=== PATIENT | female | born 1950 | race Two or more races ===

== ENCOUNTER 2024-09-18 20:46 | Inpatient (IN) | payer BC, OTHER ==
[~2024-09-18] VITALS: Ht 152.4 cm; Wt 59.3 kg
--- NOTE | 2024-09-18 21:02 | ED.PDOC ---
History of Present Illness HPI Comments 74-year-old female who came to ER via EMS for syncope. Per EMS, patient is at home earlier today, complaining of epigastric abdominal pain radiating to her back associated bouts of nausea and vomiting. Patient went to the bathroom where she had a syncopal attack. No head trauma noted. Patient brought to the ER for further evaluation and management. States she feels better now. Chief Complaint: Syncope Time Seen by MD: 21:01 Reviewed Notes: Nurses Notes Information Source: Patient, Emergency Med Personnel Mode of Arrival: EMS Severity: Moderate Timing: Minutes Duration: Minutes Prehospital treatment: 12 Lead EKG, Accucheck Past Medical History PAST MEDICAL HISTORY: HTN Surgical History: Denies all surgeries ONLINE MARKETING COORDINATOR History: Denies all ONLINE MARKETING COORDINATOR Hx Family History Family History: Reviewed,noncontributory to illness Social History Smoker: Non-Smoker Alcohol: Denies ETOH Use Drugs: Denies Drug Use Lives In: Home Constitutional: denies: chills, diaphoresis, fatigue, fever, malaise, sweats, weakness, others EENTM: denies: blurred vision, double vision, ear bleeding, ear discharge, ear drainage, ear pain, ear ringing, eye pain, eye redness, hearing loss, mouth pain, mouth swelling, nasal discharge, nose bleeding, nose congestion, nose pain, photophobia, tearing, throat pain, throat swelling, voice changes, others Respiratory: denies: cough, hemoptysis, orthopnea, SOB at rest, shortness of breath, SOB with excertion, stridor, wheezing, others Cardiovascular: denies: chest pain, dizzy spells, diaphoresis, Dyspnea on exertion, edema, irregular heart beat, left arm pain, lightheadedness, palpitations, PND, syncope, others Gastrointestinal: reports: abdominal pain, nausea, vomiting; denies: abdomen distended, blood streaked bowels, constipated, diarrhea, dysphagia, difficulty swallowing, hematemesis, melena, poor appetite, poor fluid intake, rectal bleeding, rectal pain, others Genitourinary: denies: abnormal vagina bleeding, burning, dyspareunia, dysuria, flank pain, frequency, hematuria, incontinence, pain, , vagina discharge, urgency, others Neurological: reports: dizziness, fainting; denies: headache, left sided numbness, left sided weakness, numbness, paresthesia, pre-existing deficit, right sided numbness, right sided weakness, seizure, speech problems, tingling, tremors, weakness, others Musculoskeletal: denies: back pain, gout, joint pain, joint swelling, muscle pain, muscle stiffness, neck pain, others Integumetry: denies: bruises, change in color, change in hair/nails, dryness, laceration, lesions, lumps, rash, wounds, others Allergic/Immunocompromised: denies: Difficulty Healing, Frequent Infections, Hives, Itching, others Hematologic/Lymphatic: denies: anemia, blood clots, easy bleeding, easy bruising, swollen glands, others Endocrine: denies: excessive hunger, excessive sweating, excessive thirst, excessive urination, flushing, intolerance to cold, intolerance to heat, unexplained weight gain, unexplained weight loss, others Psychiatric: denies: anxiety, bipolar disorder, depression, hopeless, panic disorder, schizophrenia, sleepless, suicidal, others Physical Exam General Appearance: No Apparent Distress, Normal HEENT: Normal ENT Inspection, Pharynx Normal, TMs Normal Neck: Full Range of Motion, Non-Tender, Normal, Normal Inspection Respiratory: Chest Non-Tender, Lungs Clear, No Accessory Muscle Use, No Respiratory Distress, Normal Breath Sounds Cardiovascular: No Edema, No JVD, No Murmur, No Gallop, Normal Peripheral Pulses, Regular Rate/Rhythm Breast Exam: Deferred Gastrointestinal: No Organomegaly, Non Tender, No Pulsatile Mass, Normal Bowel Sounds, Soft Genitalia: Deferred Pelvic: Deferred Rectal: Deferred Extremities: No calf tenderness, Normal capillary refill, Normal inspection, Normal range of motion, Non-tender, No pedal edema Musculoskeletal : Apperance: Normal Neurologic: Alert, tuckpointer II-XII nml as Tested, No Motor Deficits, Normal Affect, Normal Mood, No Sensory Deficits Cerebellar Function: Normal Reflexes: Normal Skin: Dry, Normal Color, Warm Lymphatic: No Adenopathy Was a procedure done? Was a procedure done?: No Differential Dx Considerations may include: Anemia, electrolyte imbalance, syncope, hypotension X-Ray, Labs, Meds, VS Vital Signs Date Time Temp Pulse Resp B/P (MAP) Pulse Ox O2 Delivery O2 Flow Rate FiO2 09/18/24 21:07 72 Lab Test 09/18/24 21:20 Range/Units White Blood Count 19.4 H 4.4-10.8 10^3/uL Red Blood Count 4.34 4.0-5.20 10^6/uL Hemoglobin 13.9 12.2-16.2 g/dL Hematocrit 41.4 36.0-46.0 % Mean Corpuscular Volume 95.6 80.0-100.0 fL Mean Corpuscular Hemoglobin 32.0 28.0-32.0 pg Mean Corpuscular Hemoglobin Concent 33.4 32.0-36.0 g/dL Red Cell Distribution Width 14.2 11.8-14.3 % Platelet Count 249 140-450 10^3/uL Mean Platelet Volume 7.7 6.9-10.8 fL Neutrophils (%) (Auto) 85.9 H 37.0-80.0 % Lymphocytes (%) (Auto) 6.7 L 10.0-50.0 % Monocytes (%) (Auto) 6.1 0.0-12.0 % Eosinophils (%) (Auto) 1.1 0.0-7.0 % Basophils (%) (Auto) 0.2 0.0-2.0 % Neutrophils # (Auto) 16.6 H 1.6-8.6 10 ^3/uL Lymphocytes # (Auto) 1.3 0.4-5.4 10 ^3/uL Monocytes # (Auto) 1.2 0-1.3 10 ^3/uL Eosinophils # (Auto) 0.2 0-0.8 10 ^3/uL Basophils # (Auto) 0 0-0.2 10 ^3/uL Nucleated Red Blood Cells 0.0 % Sodium Level 135 L 136-145 mmol/L Potassium Level 3.7 3.5-5.1 mmol/L Chloride Level 99 98-107 mmol/L Carbon Dioxide Level 26 20-31 mmol/L Anion Gap 10 5-15 Blood Urea Nitrogen 31 H 9-23 mg/dL Creatinine 1.25 H 0.550-1.02 mg/dL Glomerular Filtration Rate Calc 45 >90 mL/min BUN/Creatinine Ratio 24.8 H 10.0-20.0 Serum Glucose 140 H 74-106 mg/dL Lactic Acid Level 1.1 0.4-2.0 mmol/L Calcium Level 9.9 8.7-10.4 mg/dL Magnesium Level 2.1 1.6-2.6 mg/dL Total Bilirubin 0.5 0.2-1.0 mg/dL Aspartate Amino Transferase (AST) 20 13-40 U/L Alanine Aminotransferase (ALT) 25 7-40 U/L Alkaline Phosphatase 129 H 46-116 U/L Troponin I High Sensitivity 3 L </=34 ng/L Total Protein 7.4 5.7-8.2 g/dL Albumin 4.7 3.2-4.8 g/dL Time of 1ST Reevaluation: 20:58 Reevaluation 1ST: Unchanged Patient Education/Counseling: Diagnosis, Treatment Family Education/Counseling: No Family Present Sepsis Sepsis Reasesment Focused Exam Sepsis focused exam: focus exam completed Departure 1 Departure Time of Disposition: 22:50 Impression: Primary Impression: Syncope and collapse Additional Impressions: Lymphocytosis Dehydration Disposition: ADMITTED INPATIENT Admit to: Tele Condition: Guarded Critical Care Note Critical Care Time?: No Stability Stability form required: No Heart Score Heart Score: Heart Score Response (Comments) Value History N/A 0 EKG N/A 0 Age N/A 0 Risk Factors N/A 0 Troponin N/A 0 Total 0 I personally scribed for MACARENA ETIENNE MD ([email or web address]) on 09/18/24 at 21:02. Electronically submitted by Aubrey Brownlee ([email or web address]). MACARENA ETIENNE MD Sep 18, 2024 21:02
[2024-09-18 21:58] LABS: Alanine Aminotransferase 25 U/L (7-40); Albumin 4.7 g/dL (3.2-4.8); Anion Gap 10 (5-15); Aspartate Aminotransferase 20 U/L (13-40); BUN/Creatinine Ratio 24.8 (10.0-20.0); Calcium 9.9 mg/dL (8.7-10.4); Carbon Dioxide 26 mmol/L (20-31); Chloride 99 mmol/L (98-107); Magnesium 2.1 mg/dL (1.6-2.6); Potassium 3.7 mmol/L (3.5-5.1)
[2024-09-18 21:59] LABS: Bilirubin, Total 0.5 mg/dL (0.2-1.0); Total Protein 7.4 g/dL (5.7-8.2)
[2024-09-18 22:09] LABS: Alkaline Phosphatase 129 U/L (46-116); Blood Urea Nitrogen 31 mg/dL (9-23); Glucose 140 mg/dL (74-106); Sodium 135 mmol/L (136-145)
[2024-09-18 22:27] LABS: Basophils # (auto) 0 10 ^3/uL (0-0.2); Basophils % (auto) 0.2 % (0.0-2.0); Eosinophils # (auto) 0.2 10 ^3/uL (0-0.8); Eosinophils % (auto) 1.1 % (0.0-7.0); Hematocrit 41.4 % (36.0-46.0); Hemoglobin 13.9 g/dL (12.2-16.2); Lymphocytes # (auto) 1.3 10 ^3/uL (0.4-5.4); Lymphocytes % (auto) 6.7 % (10.0-50.0); Mean Corpuscular Hgb Conc. 33.4 g/dL (32.0-36.0); Mean Corpuscular Volume 95.6 fL (80.0-100.0); Monocytes # (auto) 1.2 10 ^3/uL (0-1.3); Monocytes % (auto) 6.1 % (0.0-12.0); Neutrophils # (auto) 16.6 10 ^3/uL (1.6-8.6); Neutrophils % (auto) 85.9 % (37.0-80.0); Platelet Count (auto) 249 10^3/uL (140-450); Red Blood Cells 4.34 10^6/uL (4.0-5.20); Red Cell Distribution Width 14.2 % (11.8-14.3); White Blood Cell 19.4 10^3/uL (4.4-10.8)
[2024-09-18] MEDS: cefTRIAXone 2GM/50ML D5W 50 ML IV ONE (23:00)
--- NOTE | 2024-09-18 23:11 | DVH ---
EXAMINATION: AP portable chest radiograph CLINICAL HISTORY: weak, elevated WBC, syncope COMPARISON: None FINDINGS: Apices partially obscured by necklace. No dominant consolidation identified. No sizable pleural effusion or pneumothorax. The cardiomediast inal silhouette appears within normal limits given technique. IMPRESSION: No dominant consolidation identified at this time.
[2024-09-18] MEDS: SODIUM CHLORIDE 0.9% 1,000 ML IV ONE (23:30)
[2024-09-19] MEDS ORDERED: HYDROcodone-ACET 5/325MG TAB PO PRN
[2024-09-19] MEDS ORDERED: ACETAMINOPHEN 325 MG TAB PO PRN
[2024-09-19] MEDS ORDERED: ONDANSETRON HCL 4 MG/2 ML VIAL IV PRN
[2024-09-19] MEDS ORDERED: DEXTROSE (50%) 50ML SYRG IV PRN
[2024-09-19 02:15] VITALS: PULSE 90; RESP 18; O2SAT 94
[2024-09-19 02:15] LABS: Urine Bacteria None Seen /hpf (None Seen)
[2024-09-19 03:03] LABS: Urine Blood Negative /uL (Negative); Urine Budding Yeast OCCASIONAL /hpf (None Seen); Urine Clarity Clear (Clear); Urine Color Light-Yellow (Yellow); Urine Protein, UAD Negative (Negative); Urine Specific Gravity 1.018 (1.001-1.035); Urine Urobilinogen Normal (Negative); Urine WBC 23 /hpf (0 - 5); Urine pH 6.5 (5.0-9.0)
--- NOTE | 2024-09-19 03:40 | DVHHP2 ---
History of Present Illness Reason for Visit: Nausea and vomiting History of Present Illness 74-year-old female presents for evaluation of nausea and. Patient reports developing severe epigastric abdominal pain with nausea and vomiting. She states that when she was at the restroom she had an episode of vomiting and subsequently she passed out. She complaints also of nonspecific neck pain. Denies any trauma. Currently denies abdominal pain. No other acute complaints reported. Past Medical History Diabetes mellitus, hypothyroid, hypertension, chronic kidney disease Past Surgical History Denies Family History Noncontributory Smoke: No ALCOHOL: none Drugs: None Lives: with Family Review of Systems Review of Systems Review of systems are currently negative otherwise addressed HPI Allergies: Coded Allergies: NO KNOWN ALLERGIES (Unverified , 09/19/24) Medications Current Medications Medications Dose Ordered Sig/Manuela Route Start Time Stop Time Status Last Admin Dose Admin Pravastatin Sodium 40 mg HS PO 09/19/24 22:00 Amlodipine Besylate 5 mg DAILY PO 09/19/24 10:00 Levetiracetam 500 mg BID PO 09/19/24 10:00 Levothyroxine Sodium 50 mcg QAM@0600 PO 09/19/24 06:00 Diagnostic Test (Pha) 1 strip ACHS 09/19/24 07:00 Insulin Human Regular ACHS SC 09/19/24 07:00 Dextrose 50 ml UD PRN IV 09/19/24 00:00 Acetaminophen/ Hydrocodone Bitart 1 tab Q4HP PRN PO 09/19/24 00:00 Ondansetron HCl 4 mg Q4HP PRN IV 09/19/24 00:00 Enoxaparin Sodium 40 mg DAILY SC 09/19/24 10:00 Acetaminophen 650 mg Q6HP PRN PO 09/19/24 00:00 Exam Vital Signs Vital Signs Date Time Temp Pulse Resp B/P (MAP) Pulse Ox O2 Delivery O2 Flow Rate FiO2 09/19/24 02:15 90 18 94 Room Air* 0 21 09/19/24 02:11 98.8 132/61 (84) 98.8 Exam Gen: 74-year-old female in no apparent distress. Skin: Warm, dry, normal color and texture, no rash. HEENT: Normocephalic atraumatic, mucous membranes moist and pink. Neck: Cervical and supraclavicular nodes normal without enlargement, trachea is midline, thyroid gland is normal without masses. Pulmonary: Clear to auscultation and percussion bilaterally. Cardiac: Regular rate and rhythm. No murmur Abdomen: Soft, nontender, nondistended, bowel sounds present all 4 quadrants, no guarding, no rigidity, no organomegaly. Extremities: No cyanosis, clubbing, no edema Neuro: Cranial nerves II through XII grossly intact, normal affect and speech, no focal motor deficits. Labs/Xrays ORDERING PHYSICIAN: MACARENA ETIENNE MD PROCEDURE(s): CXRP - CHEST PORTABLE REASON: weak, elevated WBC, syncope ORDER NUMBER(s): [id number], ACCESSION NUMBER(s): [id number] EXAMINATION: AP portable chest radiograph CLINICAL HISTORY: weak, elevated WBC, syncope COMPARISON: None FINDINGS: Apices partially obscured by necklace. No dominant consolidation identified. No sizable pleural effusion or pneumothorax. The cardiomediastinal silhouette appears within normal limits given technique. IMPRESSION: No dominant consolidation identified at this time. Labs Test 09/19/24 02:00 09/18/24 21:20 Range/Units Urine Color Light-yellow Yellow Urine Clarity Clear Clear Urine pH 6.5 5.0-9.0 Urine Specific Cornelius 1.018 1.001-1.035 Urine Protein Negative Negative Urine Ketones 1+ H Negative Urine Blood Negative Negative /uL Urine Nitrite Negative Negative Urine Bilirubin Negative Negative Urine Urobilinogen Normal Negative mg/dL Urine Leukocyte Esterase 2+ Negative /uL Urine RBC 1 0 - 4 /hpf Urine WBC 23 0 - 5 /hpf Urine Squamous Epithelial Cells Few <5 /hpf Urine Bacteria None seen None Seen /hpf Urine Yeast (Budding) Occasional None Seen /hpf Urine Glucose Normal Normal mg/dL White Blood Count 19.4 H 4.4-10.8 10^3/uL Red Blood Count 4.34 4.0-5.20 10^6/uL Hemoglobin 13.9 12.2-16.2 g/dL Hematocrit 41.4 36.0-46.0 % Mean Corpuscular Volume 95.6 80.0-100.0 fL Mean Corpuscular Hemoglobin 32.0 28.0-32.0 pg Mean Corpuscular Hemoglobin Concent 33.4 32.0-36.0 g/dL Red Cell Distribution Width 14.2 11.8-14.3 % Platelet Count 249 140-450 10^3/uL Mean Platelet Volume 7.7 6.9-10.8 fL Neutrophils (%) (Auto) 85.9 H 37.0-80.0 % Lymphocytes (%) (Auto) 6.7 L 10.0-50.0 % Monocytes (%) (Auto) 6.1 0.0-12.0 % Eosinophils (%) (Auto) 1.1 0.0-7.0 % Basophils (%) (Auto) 0.2 0.0-2.0 % Neutrophils # (Auto) 16.6 H 1.6-8.6 10 ^3/uL Lymphocytes # (Auto) 1.3 0.4-5.4 10 ^3/uL Monocytes # (Auto) 1.2 0-1.3 10 ^3/uL Eosinophils # (Auto) 0.2 0-0.8 10 ^3/uL Basophils # (Auto) 0 0-0.2 10 ^3/uL Nucleated Red Blood Cells 0.0 % Sodium Level 135 L 136-145 mmol/L Potassium Level 3.7 3.5-5.1 mmol/L Chloride Level 99 98-107 mmol/L Carbon Dioxide Level 26 20-31 mmol/L Anion Gap 10 5-15 Blood Urea Nitrogen 31 H 9-23 mg/dL Creatinine 1.25 H 0.550-1.02 mg/dL Glomerular Filtration Rate Calc 45 >90 mL/min BUN/Creatinine Ratio 24.8 H 10.0-20.0 Serum Glucose 140 H 74-106 mg/dL Lactic Acid Level 1.1 0.4-2.0 mmol/L Calcium Level 9.9 8.7-10.4 mg/dL Magnesium Level 2.1 1.6-2.6 mg/dL Total Bilirubin 0.5 0.2-1.0 mg/dL Aspartate Amino Transferase (AST) 20 13-40 U/L Alanine Aminotransferase (ALT) 25 7-40 U/L Alkaline Phosphatase 129 H 46-116 U/L Troponin I High Sensitivity 3 L </=34 ng/L Total Protein 7.4 5.7-8.2 g/dL Albumin 4.7 3.2-4.8 g/dL Lipase 58 H 12-53 U/L Assessment/Plan Assessment/Plan Assessment Acute gastroenteritis Acute kidney injury Leukocytosis SIRS Urinary tract infection Plan Admit the patient to [facility] to the hospitalist Larisa Resume home medications Continue treatment per orders. Plan discussed with: Patient My Orders Orders - REGAN TOMPKINS Procedure Category Date Status Time Admit ADMIT 09/18/24 Transmitted 23:57 Pravastatin Sodium PHA 09/19/24 In Process Tablet (Pravachol Tab 22:00 Amlodipine Tablet PHA 09/19/24 In Process (Norvasc Tablet) 10:00 Levetiracetam Tablet PHA 09/19/24 In Process (Keppra Tablet) 10:00 Levothyroxine Tablet PHA 09/19/24 In Process (Synthroid Tablet) 06:00 Basic Metabolic Panel LAB 09/19/24 Logged 04:00 Glucose Blood PHA 09/19/24 In Process (Accu-Chek Comfort 07:00 Insulin R (Human) PHA 09/19/24 In Process (Insulin R) 07:00 Dextrose 50% Syringe PHA 09/19/24 In Process 00:00 Hydrocodone-Acet PHA 09/19/24 In Process 5/325mg Tab (Globe 00:00 Ondansetron Hcl PHA 09/19/24 In Process (Zofran) 00:00 Enoxaparin Sodium PHA 09/19/24 In Process (Lovenox) 10:00 Complete Blood Count LAB 09/19/24 Logged 04:00 Cardiac DIET 09/19/24 Transmitted Diet-2gna,Lofat,Lochol Breakfast Condition: Stable SONY 09/18/24 In Process 23:58 Acetaminophen Tablet PHA 09/19/24 In Process (Tylenol Tablet) 00:00 Bedrest With Bathroom SONY 09/18/24 In Process Privileg 23:58 Ceftriaxone Ivpb PHA 09/19/24 Verified Larisa 09:00 Date of Service: Sep 19, 2024 Billing Provider: REGAN TOMPKINS Common Visit Codes: [id number] INP/OBS CARE (MOD) REGAN TOMPKINS Sep 19, 2024 03:40
[2024-09-19] MEDS: LEVOTHYROXINE SODIUM 50 MCG TAB PO SCH (06:09)
[2024-09-19] MEDS: ACCU-CHEK COMFORT CURVE STRIP VI SCH (06:11)
[2024-09-19 06:12] LABS: Basophils # (auto) 0 10 ^3/uL (0-0.2); Basophils % (auto) 0.1 % (0.0-2.0); Eosinophils # (auto) 0 10 ^3/uL (0-0.8); Eosinophils % (auto) 0.3 % (0.0-7.0); Hematocrit 38.5 % (36.0-46.0); Hemoglobin 13.3 g/dL (12.2-16.2); Lymphocytes # (auto) 0.4 10 ^3/uL (0.4-5.4); Lymphocytes % (auto) 3.6 % (10.0-50.0); Mean Corpuscular Hemoglobin 32.7 pg (28.0-32.0); Mean Corpuscular Hgb Conc. 34.4 g/dL (32.0-36.0); Mean Corpuscular Volume 94.9 fL (80.0-100.0); Monocytes # (auto) 0.4 10 ^3/uL (0-1.3); Monocytes % (auto) 3.3 % (0.0-12.0); Neutrophils # (auto) 11.4 10 ^3/uL (1.6-8.6); Neutrophils % (auto) 92.7 % (37.0-80.0); Nucleated Red Blood Cells % 0.1 %; Platelet Count (auto) 197 10^3/uL (140-450); Red Blood Cells 4.05 10^6/uL (4.0-5.20); Red Cell Distribution Width 13.9 % (11.8-14.3); White Blood Cell 12.3 10^3/uL (4.4-10.8)
[2024-09-19] MEDS: InsuLIN REG 1unit/0.01ml Soln (100units/ml) SC SCH (06:19)
--- NOTE | 2024-09-19 06:19 | ECG ---
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
[2024-09-19 06:36] LABS: Chloride 103 mmol/L (98-107); Sodium 137 mmol/L (136-145)
[2024-09-19 06:37] LABS: Anion Gap 11 (5-15); Carbon Dioxide 23 mmol/L (20-31)
[2024-09-19 06:42] LABS: BUN/Creatinine Ratio 24.5 (10.0-20.0)
[2024-09-19 06:50] LABS: Blood Urea Nitrogen 25 mg/dL (9-23); Glucose 165 mg/dL (74-106); Potassium 2.9 mmol/L (3.5-5.1)
[2024-09-19 08:00] VITALS: PULSE 66; RESP 17; O2SAT 95
[2024-09-19] MEDS: levETIRAcetam 500 MG TAB PO SCH (10:44)
[2024-09-19] MEDS: cefTRIAXone 1GM/50ML D5W 50 ML IV SCH (10:44)
[2024-09-19] MEDS: amLODIPine BESYLATE 5 MG TAB PO SCH (10:45)
[2024-09-19] MEDS: ENOXAPARIN SOD 40 MG/0.4 ML SYRINGE SC SCH (10:45)
[2024-09-19 14:50] VITALS: BP 127/59; PULSE 75; RESP 17; TEMP 98.8; O2SAT 92
[2024-09-19 16:04] VITALS: BP 113/51; PULSE 66; RESP 18; TEMP 98.1; O2SAT 96
[2024-09-19 17:00] VITALS: BP 113/51; PULSE 67; RESP 18; TEMP 98.1; O2SAT 96
[2024-09-19] MEDS ORDERED: GLIP10TA21 PO (17:24)
[2024-09-19] MEDS ORDERED: MORPHINE SULFATE INJ 2 MG/ml SYRG IV PRN (17:45)
[2024-09-19 21:00] VITALS: BP 109/49; PULSE 69; RESP 20; TEMP 98.1; O2SAT 100
[2024-09-19] MEDS: PRAVASTATIN SODIUM 20 MG TAB PO SCH (22:15)
[2024-09-20 01:00] VITALS: BP 117/51; PULSE 55; RESP 17; TEMP 97.4; O2SAT 96
[2024-09-20 05:02] VITALS: BP 106/48; PULSE 52; RESP 20; TEMP 98.8; O2SAT 100
[2024-09-20 05:31] VITALS: PULSE 60
[2024-09-20] MEDS: POTASSIUM CHL 20 Meq TABLET PO ONE ×2 (06:34→09:32)
[2024-09-20 08:00] VITALS: PULSE 86; RESP 18; O2SAT 94
[2024-09-20 09:00] VITALS: BP 122/60; PULSE 62; RESP 16; TEMP 98.3; O2SAT 94
[2024-09-20 12:43] VITALS: BP 133/88; PULSE 60; RESP 18; TEMP 97.9; O2SAT 95
[2024-09-20] MEDS ORDERED: CEPH500C PO (15:17)
== END 2024-09-20 15:54 | disposition home or self-care (01) | DRG 689 ==
LOC: EDBD 20:46 → ER 20:46 → OVERFLOW 23:57 → WEST WING 09-19 14:45
PROVIDERS: ADMIT Nurse Practitioner; ATTEND Nurse Practitioner
DX: N30.00 Acute cystitis without hematuria (principal); R65.11 Systemic inflammatory response syndrome (SIRS) of non-infectious origin with acute organ dysfunction; N17.9 Acute kidney failure, unspecified; D72.820 Lymphocytosis (symptomatic); E03.9 Hypothyroidism, unspecified; E11.22 Type 2 diabetes mellitus with diabetic chronic kidney disease; E86.0 Dehydration; N18.9 Chronic kidney disease, unspecified; I12.9 Hypertensive chronic kidney disease with stage 1 through stage 4 chronic kidney disease, or unspecified chronic kidney disease
CPT/HCPCS: 36415; 71045; 80048; 80053; 81001; 82962; 83605; 83690; 83735; 84132; 84484; 85025; 87040; 93005; G0378; J1815